=== PATIENT | female | born 1985 | race Caucasian/White ===

== ENCOUNTER 2020-02-02 12:13 | Outpatient (CLI) | payer BC, OTHER ==
[~2020-02-02 12:13] MED LIST: IBUP-1223 PO; OXYC-302 PO; PREN1TAB60 PO
== END 2020-02-02 23:59 | disposition home or self-care (01) ==
LOC: CFH 12:13
PROVIDERS: ATTEND Student in an Organized Health Care Education/Training Program
DX: N64.4 Mastodynia (principal)
CPT/HCPCS: 76642; 77066; G0279